=== PATIENT | male | born 1965 | race Caucasian/White ===

== ENCOUNTER 2016-09-13 15:58 | Emergency (ER) | payer OTHER ==
[~2016-09-13] VITALS: Ht 172.7 cm; Wt 102.0 kg
[2016-09-13 18:32] VITALS: BP 152/79
== END 2016-09-13 18:32 | disposition home or self-care (01) ==
LOC: ED 15:58
DX: J20.8 Acute bronchitis due to other specified organisms (principal); K57.92 Diverticulitis of intestine, part unspecified, without perforation or abscess without bleeding

== ENCOUNTER 2016-12-21 19:20 | Emergency (ER) | payer OTHER ==
[~2016-12-21] VITALS: Ht 172.7 cm; Wt 100.2 kg
[2016-12-21 20:09] LABS: microscopic required? NO
[2016-12-21 20:24] LABS: BASOPHIL % 0.3 % (0-2); CALCIUM 8.8 mg/dL (8.5-10.1); CARBON DIOXIDE 29.6 mmol/L (21-32); CHLORIDE SERUM 103 mmol/L (98-107); CREATININE SERUM 1.2 mg/dL (0.7-1.3); GFR1 > 60 mL/min; GLUCOSE SERUM 107 mg/dL (74-106); PLATELET COUNT 277 x10^3mcL (130-400); RED CELL DISTRIBUTION WIDTH 12.7 % (11.5-14.5); SODIUM SERUM 138 mmol/L (136-145)
[2016-12-21 20:29] LABS: ALKALINE PHOSPHATASE 109 U/L (46-116); ALT/SGPT 49 U/L (16-63); AST/SGOT 28 U/L (15-37); BILIRUBIN TOTAL 1.19 mg/dL (0.20-1.00); TOTAL PROTEIN, SERUM 7.1 g/dL (6.4-8.2)
[2016-12-21 20:30] LABS: UA SPECIFIC GRAVITY 1.015 (1.005-1.035); urine erythrocyte NEGATIVE (NEGATIVE)
[2016-12-21 20:41] LABS: ALBUMIN 3.1 g/dL (3.4-5.0)
[2016-12-21 22:08] VITALS: BP 128/80
== END 2016-12-21 22:08 | disposition home or self-care (01) ==
LOC: ED 19:20
PROVIDERS: Emergency Medicine
DX: R10.30 Lower abdominal pain, unspecified (principal); R03.0 Elevated blood-pressure reading, without diagnosis of hypertension
CPT/HCPCS: J1885; J2270; J2405

== ENCOUNTER 2017-07-28 00:11 | Emergency (ER) | payer SELFPAY ==
[2017-07-28 02:30] VITALS: BP 131/76
== END 2017-07-28 02:29 | disposition home or self-care (01) ==
LOC: ED 00:11
DX: S13.4XXA Sprain of ligaments of cervical spine, initial encounter (principal); M54.5 Low back pain; I10 Essential (primary) hypertension; V43.62XA Car passenger injured in collision with other type car in traffic accident, initial encounter; Y93.89 Activity, other specified; Y99.8 Other external cause status; Y92.89 Other specified places as the place of occurrence of the external cause
CPT/HCPCS: J1885

== ENCOUNTER 2018-01-20 20:23 | Emergency (ER) | payer OTHER ==
[~2018-01-20] VITALS: Ht 170.2 cm; Wt 99.8 kg
[2018-01-20 21:04] VITALS: Ht 170.2 cm; Wt 99.8 kg
[2018-01-20 21:52] LABS: BASOPHIL % 1.2 % (0-2); PLATELET COUNT 268 x10^3mcL (130-400); RED CELL DISTRIBUTION WIDTH 12.7 % (11.5-14.5)
[2018-01-20 22:02] LABS: CALCIUM 8.5 mg/dL (8.5-10.1); CARBON DIOXIDE 27.2 mmol/L (21-32); CREATININE SERUM 1.4 mg/dL (0.7-1.3); POTASSIUM SERUM 3.6 mmol/L (3.5-5.1)
[2018-01-20 22:05] LABS: ALBUMIN 3.4 g/dL (3.4-5.0); BILIRUBIN TOTAL 1.09 mg/dL (0.20-1.00); TOTAL PROTEIN, SERUM 7.2 g/dL (6.4-8.2)
[2018-01-21 01:40] VITALS: BP 122/79
== END 2018-01-21 01:40 | disposition home or self-care (01) ==
LOC: ED 20:23
PROVIDERS: Emergency Medicine
DX: R53.81 Other malaise (principal); N28.9 Disorder of kidney and ureter, unspecified; R42 Dizziness and giddiness; R07.89 Other chest pain; E11.9 Type 2 diabetes mellitus without complications; Z91.02 Food additives allergy status
CPT/HCPCS: 83880; J2405

== ENCOUNTER 2018-08-27 11:14 | Emergency (ER) | payer OTHER ==
[~2018-08-27] VITALS: Ht 172.7 cm; Wt 150.6 kg
[2018-08-27 11:55] VITALS: Ht 172.7 cm; Wt 150.6 kg
[2018-08-27 13:21] VITALS: BP 130/79
== END 2018-08-27 13:21 | disposition home or self-care (01) ==
LOC: ED 11:14
DX: M10.9 Gout, unspecified (principal); B35.3 Tinea pedis; F17.210 Nicotine dependence, cigarettes, uncomplicated; Z71.6 Tobacco abuse counseling; Z88.8 Allergy status to other drugs, medicaments and biological substances; E11.9 Type 2 diabetes mellitus without complications
CPT/HCPCS: 99406

== ENCOUNTER 2018-09-15 16:10 | Emergency (ER) | payer OTHER ==
[~2018-09-15] VITALS: Ht 170.2 cm; Wt 105.2 kg
[2018-09-15 16:16] VITALS: Ht 170.2 cm; Wt 105.2 kg
[2018-09-15 16:52] LABS: BASOPHIL % 0.6 % (0-2); PLATELET COUNT 288 x10^3mcL (130-400); RED CELL DISTRIBUTION WIDTH 12.7 % (11.5-14.5)
[2018-09-15 17:01] LABS: CALCIUM 8.6 mg/dL (8.5-10.1); CHLORIDE SERUM 101 mmol/L (98-107); CREATININE SERUM 1.1 mg/dL (0.7-1.3); GFR1 > 60 mL/min; GLUCOSE SERUM 107 mg/dL (74-106); POTASSIUM SERUM 4.4 mmol/L (3.5-5.1); SODIUM SERUM 138 mmol/L (136-145)
[2018-09-15 17:05] LABS: ALKALINE PHOSPHATASE 110 U/L (46-116); ALT/SGPT 58 U/L (16-63); AMYLASE 43 U/L (25-115); AST/SGOT 27 U/L (15-37); BILIRUBIN TOTAL 0.9 mg/dL (0.20-1.00); LIPASE 127 IU/L (73-393); TOTAL PROTEIN, SERUM 6.7 g/dL (6.4-8.2)
[2018-09-15 17:06] LABS: ALBUMIN 2.8 g/dL (3.4-5.0)
[2018-09-15 18:16] VITALS: BP 115/76
== END 2018-09-15 18:16 | disposition home or self-care (01) ==
LOC: ED 16:10
PROVIDERS: Emergency Medicine
DX: K57.32 Diverticulitis of large intestine without perforation or abscess without bleeding (principal); E11.9 Type 2 diabetes mellitus without complications; Z88.8 Allergy status to other drugs, medicaments and biological substances; Z90.49 Acquired absence of other specified parts of digestive tract
CPT/HCPCS: 36415; J1885; Q0162

== ENCOUNTER 2018-12-05 14:35 | Emergency (ER) | payer OTHER ==
[~2018-12-05] VITALS: Ht 170.2 cm; Wt 102.1 kg
[2018-12-05 14:37] VITALS: BP 160/97; Ht 170.2 cm; Wt 102.1 kg
[2018-12-05 16:01] LABS: BASOPHIL % 0.6 % (0-2); PLATELET COUNT 274 x10^3mcL (130-400); RED CELL DISTRIBUTION WIDTH 13.2 % (11.5-14.5)
[2018-12-05 16:02] LABS: CALCIUM 8.5 mg/dL (8.5-10.1); CARBON DIOXIDE 29.3 mmol/L (21-32); CHLORIDE SERUM 105 mmol/L (98-107); CREATININE SERUM 1.2 mg/dL (0.7-1.3); GFR1 > 60 mL/min; GLUCOSE SERUM 117 mg/dL (74-106); POTASSIUM SERUM 3.7 mmol/L (3.5-5.1); SODIUM SERUM 141 mmol/L (136-145)
[2018-12-05 16:07] LABS: ALBUMIN 3.3 g/dL (3.4-5.0); ALKALINE PHOSPHATASE 87 U/L (46-116); ALT/SGPT 39 U/L (16-63); AST/SGOT 28 U/L (15-37); BILIRUBIN TOTAL 0.9 mg/dL (0.20-1.00); TOTAL PROTEIN, SERUM 6.8 g/dL (6.4-8.2)
== END 2018-12-05 18:36 | disposition home or self-care (01) ==
LOC: ED 14:35
DX: R22.43 Localized swelling, mass and lump, lower limb, bilateral (principal)
CPT/HCPCS: 36415

== ENCOUNTER 2019-04-30 11:23 | Emergency (ER) | payer OTHER ==
[~2019-04-30] VITALS: Ht 172.7 cm; Wt 105.7 kg
[2019-04-30 11:48] VITALS: Ht 172.7 cm; Wt 105.7 kg
[2019-04-30 15:12] VITALS: BP 105/64
== END 2019-04-30 15:12 | disposition home or self-care (01) ==
LOC: ED 11:23
DX: M10.9 Gout, unspecified (principal); Z88.8 Allergy status to other drugs, medicaments and biological substances
CPT/HCPCS: 82962; J1885; J7030; J7512

== ENCOUNTER 2019-09-05 02:48 | Emergency (ER) | payer OTHER ==
[~2019-09-05] VITALS: Ht 172.7 cm; Wt 102.1 kg
[2019-09-05 03:11] VITALS: Ht 172.7 cm; Wt 102.1 kg
[2019-09-05 05:57] VITALS: BP 140/92
== END 2019-09-05 05:57 | disposition home or self-care (01) ==
LOC: ED 02:48
DX: S63.501A Unspecified sprain of right wrist, initial encounter (principal); M79.645 Pain in left finger(s); M10.9 Gout, unspecified; Z90.49 Acquired absence of other specified parts of digestive tract; Z98.890 Other specified postprocedural states; V19.9XXA Pedal cyclist (driver) (passenger) injured in unspecified traffic accident, initial encounter; Y93.I9 Activity, other involving external motion; Y92.828 Other wilderness area as the place of occurrence of the external cause; Y99.8 Other external cause status
CPT/HCPCS: Q0092

== ENCOUNTER 2019-11-24 15:26 | Emergency (ER) | payer OTHER ==
[~2019-11-24] VITALS: Ht 172.7 cm; Wt 99.8 kg
[2019-11-24 16:01] VITALS: Ht 172.7 cm; Wt 99.8 kg
[2019-11-24 16:58] LABS: BASOPHIL % 0.5 % (0-2); PLATELET COUNT 279 x10^3mcL (130-400); RED CELL DISTRIBUTION WIDTH 12.8 % (11.5-14.5)
[2019-11-24 17:25] LABS: CARBON DIOXIDE 26.5 mmol/L (21-32); CHLORIDE SERUM 106 mmol/L (98-107); CREATININE SERUM 1.2 mg/dL (0.7-1.3); GFR1 > 60 mL/min; GLUCOSE SERUM 119 mg/dL (74-106); POTASSIUM SERUM 3.9 mmol/L (3.5-5.1); SODIUM SERUM 141 mmol/L (136-145)
[2019-11-24 17:30] LABS: ALBUMIN 3.1 g/dL (3.4-5.0); ALKALINE PHOSPHATASE 79 U/L (46-116); ALT/SGPT 35 U/L (16-63); AST/SGOT 23 U/L (15-37); TOTAL PROTEIN, SERUM 6.4 g/dL (6.4-8.2)
[2019-11-24 19:54] VITALS: BP 116/79
== END 2019-11-24 19:54 | disposition home or self-care (01) ==
LOC: ED 15:26
PROVIDERS: Emergency Medicine
DX: R42 Dizziness and giddiness (principal); E86.0 Dehydration; F17.210 Nicotine dependence, cigarettes, uncomplicated; M10.9 Gout, unspecified; Z71.6 Tobacco abuse counseling
CPT/HCPCS: 99406; J2765; J7030